=== PATIENT | female | born 1935 | race Caucasian/White ===

== ENCOUNTER → 2018-02-24 | Outpatient (CLI) | payer OTHER ==
[~2018-02-24] MED LIST: AMLO5TAB4 PO; CALCIUM PO; CETI10TA18 PO; CHOL500045 PO; DOCU-131 PO; ENOX40SY4 SQ; FOLI0.4T2 PO; HEPA50004 SQ; LEVO112T2 PO; LISI-420 PO; METH750T2 PO; METH750T87 PO; MORP-52 PO; MORP30SU PR; MULT-516 PO; NAPR500T8 PO; OMEP40CA3 PO; OXYC10TA6 PO; OXYC5TAB3 PO; PANT40TA3 PO; PANT40TA5 PO; PREG50CA PO; SENN-31 PO; SENN1TAB7 PO; magnesium PO; potassium PO
== END | disposition home or self-care (01) ==
LOC: CFH 12:16
PROVIDERS: ATTEND Internal Medicine Endocrinology, Diabetes & Metabolism
DX: Z13.820 Encounter for screening for osteoporosis (principal); M81.0 Age-related osteoporosis without current pathological fracture
CPT/HCPCS: 77080

== ENCOUNTER → 2018-10-14 | Outpatient (CLI) | payer OTHER ==
[~2018-10-14] MED LIST changes: -SENN1TAB7 PO; +SENN1TAB8 PO
== END | disposition home or self-care (01) ==
LOC: CFH 11:55
PROVIDERS: ATTEND Nurse Practitioner Family
DX: Z12.2 Encounter for screening for malignant neoplasm of respiratory organs (principal); Z87.891 Personal history of nicotine dependence
CPT/HCPCS: G0297

== ENCOUNTER 2018-10-20 10:48 | Emergency (ER) | payer OTHER ==
[~2018-10-20] VITALS: Ht 165.1 cm; Wt 90.0 kg
--- NOTE | 2018-10-20 10:56 | NUR ---
PT BIB [facility] TO ED FOR CONSTIPATION X2 DAYS CAUSING SEVERE LOWER ABD PAIN. PT STATES TOOK 2 HYDROCODONE 1 WEEK AGO WITHOUT STOOL SOFTENERS. 2 STOOL SOFTENERS TAKED LAST NIGHT WITH NO SUCCESS. PT CONNECTED TO MONITORS. VSS. AWAITING MD ASSESSMENT AT [facility] TIME. CALL LIGHT WITHIN REACH.
[2018-10-20] MEDS ORDERED: PROPOFOL 10 MG/ML, 20ML IVPush ONE (11:30)
--- NOTE | 2018-10-20 11:34 | NUR ---
TO BEDSIDE FOR EVALUATION. PER MD, PRO SED IS NECESSARY FOR DISIMPACTION. FLOAT NURSE WILL BE AVAILABLE AT APPROX 12:15. XR ATTEMPTING TO TAKE PT. PT REQUESTING BEDSIDE XR. XR TECH WITH PORTABLE AT BEDSIDE NOW. PT UPDATED ON POC. CALL LIGHT WTIHIN REACH. VSS.
--- NOTE | 2018-10-20 12:00 | NUR ---
BEDSIDE REPORT TO JACKELYN PERSAUD FOR CON SEC.
[2018-10-20] MEDS ORDERED: PROPOFOL 10 MG/ML, 20ML ONE (12:05)
--- NOTE | 2018-10-20 13:01 | NUR ---
procedure complete. pt recovering at this time with betty allen.
--- NOTE | 2018-10-20 13:33 | NUR ---
pt provided crackers and water. tolerating well. will attempt to ambulate if no n/v or abd pain. pt resting in bed. call light within reach.
[2018-10-20 13:34] VITALS: BP 146/73
== END 2018-10-20 14:43 | disposition home or self-care (01) ==
LOC: ED 11:34
DX: K64.4 Residual hemorrhoidal skin tags (principal); E03.9 Hypothyroidism, unspecified; I10 Essential (primary) hypertension; Z87.891 Personal history of nicotine dependence; Z90.49 Acquired absence of other specified parts of digestive tract; Z90.710 Acquired absence of both cervix and uterus
CPT/HCPCS: 74018; 99285